=== PATIENT | male | born 1965 | race Two or more races ===

== ENCOUNTER 2021-02-10 19:13 | Emergency (ER) | payer SELFPAY ==
[~2021-02-10] VITALS: Ht 167.6 cm; Wt 77.1 kg
[2021-02-10 19:19] VITALS: BP 147/84
--- NOTE | 2021-02-10 19:33 | NUR ---
Patient does not wish to proceed with medical care recommended by Dr. Osman. Patient given information related to possible complications, up to and including , which could occur as a result of leaving the hospital at this time. Patient verbalizes understanding of risks involved due to leaving against medical advice. Patient has signed AMA form. MD is aware.
== END 2021-02-10 19:35 | disposition left against medical advice (07) ==
LOC: ER 19:16
DX: R56.9 Unspecified convulsions (principal); Z59.00 Homelessness unspecified

== ENCOUNTER 2021-08-22 20:50 | Emergency (ER) | payer SELFPAY ==
[~2021-08-22] VITALS: Ht 162.6 cm; Wt 77.1 kg
--- NOTE | 2021-08-22 21:25 | NUR ---
TO ER BED 18. BIBRA[address] FROM [address] C/O ETOH . PT DENIES ANY CHEST PAIN. NOT IN RESPIRATORY DISTRESS. CONNECTED TO MONITOR. AWAITING MD TOM
--- NOTE | 2021-08-22 23:30 | NUR ---
PT IS ASLEEP BUT EASILY AROUSABLE, WILL CONTINUE TO MONITOR.
--- NOTE | 2021-08-23 00:37 | NUR ---
REFUSED BLOOD DRAW MULTIPLE TIMES. AWARE
--- NOTE | 2021-08-23 02:44 | NUR ---
PT RESTING, V/S WITHIN LIMITS. WILL CONTINUE TO MONITOR
--- NOTE | 2021-08-23 04:11 | NUR ---
PT STILL ASLEEP, WILL CONT. MONITOR.
--- NOTE | 2021-08-23 04:44 | NUR ---
PATIENT AWAKE, ALERT AND RESPONSIVE. BREATHING EVENLY, AMBULATING WITH STEADY GAITS AND PO INTAKE TOLERATED WELL. REPORTED FEELING WELL ADN DENIED SI/HI. AWARE
--- NOTE | 2021-08-23 05:15 | NUR ---
Patient given written and verbal discharge instructions. Patient verbalizes understanding of instructions. Patient is ambulatory with steady gait. Refuses offer of [facility] placement. Patient given list of available shelters in surrounding area.
[2021-08-23 05:17] VITALS: BP 133/75
== END 2021-08-23 05:19 | disposition home or self-care (01) ==
LOC: ER 20:55
DX: F10.129 Alcohol abuse with intoxication, unspecified (principal); Z59.00 Homelessness unspecified; Y90.9 Presence of alcohol in blood, level not specified

== ENCOUNTER 2021-08-26 11:02 | Emergency (ER) | payer MEDICARE, OTHER ==
[~2021-08-26] VITALS: Ht 162.6 cm; Wt 79.4 kg
--- NOTE | 2021-08-26 11:12 | NUR ---
bibra60, from reddsutin, stefanie, etoh, bs 128. on room air, breathing evenly and unlabored. Kept comfortable, will continue to monitor accordingly. Sitter at bedside for constant monitoring.
--- NOTE | 2021-08-26 13:33 | NUR ---
Note: Pt. Is a 56-year-old male who demonstrates adequate insight to the reason for hospitalization. Per pt., he does not remember how he got to the hospital. Per pt., "I am here for a check-up." Per EMR, pt. presents to the ER for being found intoxicated. Pt. was oriented x3, alert, and cooperative. During interview, pt. was capable of following directions and appeared unkempt. Pt.'s speech was at a normal rate and pt.'s mood was elevated. Pt. reported no hx of mental health, substance abuse, suicidal ideation, or homicidal ideation. Pt. denies auditory hallucinations, visual hallucinations, paranoia, or delusions. Pt. stated that he does not drink. SW explored pt.'s living situation. Per pt., he is homeless and stays in [place]. Pt. states that he gets money monthly from the [employer]. SW offered rehab but pt. rejected. Plan: SW provided available resources and pt. accepted. Per pt., he wants to go back to [place] once discharged. Resources Provided: Year-round shelters: [facility] [address] [place] [address] ; [place] [facility] [address] [place] [address]; [place] [facility] Jyklesv8593 [facility] [address] Winter Shelters: Elba Lori [place] Provider: [facility] [place] Address: [address] [place] [address] [place], [address] # of Beds: 47 Population Served: [facility] 6 | [facility] Ana [place] Provider: [facility] Address: [address], [address] # of Beds: 66 Population Served: [employer] [place] Provider: First [facility] Serve Address: [address] [facility], [address] # of Beds: 56 Population Served: Le [place] Provider: [facility] Address: [address] [facility], [address] # of Beds: 49 Population Served: [facility] SPA 8 | [place] Provider: First to Serve Address: [address] [facility] [place] # of Beds: 37 Population Served: Coed Hygiene: [facility] [place]: [address] [place] ; [facility] [address] [facility] ; [facility] [address] [place] . Food Resources: [place] [facility] at [facility]- [address] [place]; Meet Each Need with Dignity ([facility]) [address] [facility]; [facility] [address] [facility]; [facility] [address] [facility] [place]. Mental Health resources provided: [facility] [address] [place], [place] [phone] ; [facility] [address] [facility] [address], [place], [place] [phone] ; [facility] [address] [place], [place] [id number] ; [facility] [address] [place], [place] [address] Healthcare Clinics: [facility] [address] [facility], [address] [place]. [place] ; [facility] [address] [facility] [address] [place] [address]; [facility] [place] [address] [facility]. [place] [phone] Counseling--Outpatient [facility] [address] [facility], [facility] [place], [place] [phone] (Specializes in in-depth psychotherapy for emotional distress: anxiety, depression, interpersonal conflicts, life transitions, childhood abuse) [place] [id number] [place] [address] (Assist with solving problem marital difficulties, separation & divorce, aging parents, & grief, chronic & terminal illness) [facility] [address] [place] [address] (Deal with loss & grief, anxiety, marital difficulties) Homebound/Mental Health Services [address] [address] [facility] [address] [place], [place] [address] (Provide in-home mental services to people who are incapable of leaving their homes) [facility] Elderly Senior Service/Resource Center [address] [place] [address] [facility] [address] [facility] [place] [address] PSYCHIATRIC OUTPATIENT SERVICES [facility] Partial Hospitalization and Intensive Outpatient Program (Managed Care and [place] Only)[address] [facility] [phone] [facility] Partial Hospitalization and Outpatient [id number] [place], [place] [phone] [facility] [place] Bop[address] [place], [place] [phone] [facility] Partial Hospitalization and Outpatient Ifldiwn55710 [place], [phone] Substance Abuse resources provided included: [facility] Substance Abuse Self-Helpline (SAS) ; CRI -HELP [address] On License [facility]. [place] [address] ; [facility] [address] [facility] [address] ; [facility] [address] [facility] [address] ; [facility] [address] [facility] [address] ; [facility] [address] [facility] [address] ; [facility] [address] [facility] [phone] ; [facility] Substance Abuse Helpline(SAS)[facility] ; [facility] ; [facility] [place]; [facility] [place]; [facility] [place]; [facility] Juan Carlos Mao; [facility] [place]; [facility]; [facility] [place]; [facility]'s [place] Jacki Persaud; Alcoholics Anonymous -SFV; Wz-Wqtr-Zcncdqa ; Marijuana Anonymous -SFV; Narcotics Anonymous www.na.org;
[2021-08-26 22:00] VITALS: BP 133/70
--- NOTE | 2021-08-26 22:00 | NUR ---
Pt ambulatory with a steady gait
== END 2021-08-26 22:05 | disposition home or self-care (01) ==
LOC: ER 11:05
DX: F10.129 Alcohol abuse with intoxication, unspecified (principal); Z59.00 Homelessness unspecified; Y90.9 Presence of alcohol in blood, level not specified